=== PATIENT | male | born 1970 | race Caucasian/White ===

== ENCOUNTER 2024-01-27 04:41 | Emergency (ER) | payer SELFPAY ==
[~2024-01-27] VITALS: Ht 167.6 cm; Wt 108.0 kg
[2024-01-27 04:50] VITALS: O2SAT 98
[2024-01-27] MEDS: IBUPROFEN 600MG TABLET PO ONE (06:00)
[2024-01-27 06:20] VITALS: BP 133/65; PULSE 80; RESP 17; TEMP 36.61404; O2SAT 99
[2024-01-27] MEDS ORDERED: IBUP-2029 MT (06:22)
== END 2024-01-27 06:49 | disposition home or self-care (01) ==
LOC: ER 04:55
DX: S49.91XA Unspecified injury of right shoulder and upper arm, initial encounter (principal); M25.531 Pain in right wrist; W01.0XXA Fall on same level from slipping, tripping and stumbling without subsequent striking against object, initial encounter; Y93.89 Activity, other specified; Y92.89 Other specified places as the place of occurrence of the external cause; Y99.8 Other external cause status
CPT/HCPCS: 29125; 73030; 73110; 73130; 99284; A4565